=== PATIENT | female | born 1945 | race Caucasian/White ===

== ENCOUNTER → 2016-10-29 16:59 | Outpatient (CLI) | payer MEDICARE, BC | END | disposition home or self-care (01) | LOC: D.MAMMO 10:00 | DX: N63 Unspecified lump in breast (principal) ==

== ENCOUNTER → 2017-11-21 19:29 | Outpatient (CLI) | payer MEDICARE, BC | END | disposition home or self-care (01) | LOC: D.MAMMO 15:45 | DX: Z12.31 Encounter for screening mammogram for malignant neoplasm of breast (principal) ==

== ENCOUNTER → 2018-12-25 19:43 | Outpatient (CLI) | payer MEDICARE, BC | END | disposition home or self-care (01) | LOC: D.MAMMO 13:15 | PROVIDERS: ATTEND Family Medicine | DX: Z12.31 Encounter for screening mammogram for malignant neoplasm of breast (principal) ==